=== PATIENT | female | born 1975 | race African-American/Black ===

== ENCOUNTER → 2017-03-09 | Outpatient (CLI) | payer BC ==
--- NOTE | 2017-03-09 15:36 | RAD ---
DATE: 03/09/2017 EXAM: DIGITAL SCREEN BILAT W/CAD HISTORY: Screening COMPARISON: 05/22/2014 This study was interpreted with the benefit of Computerized Aided Detection (CAD). FINDINGS: Breast Density: SCATTERED The breast parenchyma shows scattered fibroglandular densities. Breast parenchyma level B. There has not been a significant change in the appearance of the breasts compared to the previous exam IMPRESSION: Benign findings BI-RADS CATEGORY: 2 BENIGN FINDING(S) RECOMMENDED FOLLOW-UP: 12M 12 MONTH FOLLOW-UP PQRS compliance statement: Patient information was entered into a reminder system with a target due date 03/09/2018 for the next mammogram. Mammography is a sensitive method for finding small breast cancers, but it does not detect them all and is not a substitute for careful clinical examination. A negative mammogram does not negate a clinically suspicious finding and should not result in delay in biopsying a clinically suspicious abnormality. "Our facility is accredited by the [employer] Mammography [employer]."
== END | disposition home or self-care (01) ==
LOC: MAMMO 14:50
PROVIDERS: ATTEND Internal Medicine
DX: Z12.31 Encounter for screening mammogram for malignant neoplasm of breast (principal); Z00.00 Encounter for general adult medical examination without abnormal findings
CPT/HCPCS: G0202; 77067

== ENCOUNTER → 2017-09-06 | Outpatient (CLI) | payer BC | END | disposition home or self-care (01) | LOC: KCIC CT 15:19 | DX: J32.1 Chronic frontal sinusitis (principal) | CPT/HCPCS: 70486 ==

== ENCOUNTER → 2018-05-11 | Outpatient (CLI) | payer BC ==
--- NOTE | 2018-05-13 10:31 | RAD ---
DATE: 05/11/2018 2:30 PM EXAM: MAMMO KIMBERLYN SCREENING BILATERAL HISTORY: routine screening evaluation. COMPARISON: Prior mammographic imaging dating back to 06/10/2005 Bilateral CC and MLO views of the breasts were performed. Bilateral breast tomosynthesis was performed in CC and MLO projections. This study was interpreted with the benefit of Computerized Aided Detection (CAD ). Breast Density: The breast parenchyma shows scattered fibroglandular densities. Breast parenchyma level B. FINDINGS: There is a focal asymmetry in the superior right breast approximately 8 cm from the nipple best seen on the tomographic images. No suspicious masses, microcalcifications or architectural distortion is present to suggest malignancy in the left breast. The visualized axillae are unremarkable. IMPRESSION: Right breast focal asymmetry, findings for which additional imaging is advised. BI-RADS CATEGORY: 0 INCOMPLETE: NEEDS ADDITIONAL IMAGING EVALUATION AND/OR PRIOR MAMMOGRAMS FOR COMPARISON. RECOMMENDED FOLLOW-UP: ADD ADDITIONAL IMAGING The patient will be contacted to return for additional imaging and a supplemental report will follow. Recommend spot compression views of the right breast in the CC and MLO projections and likely ultrasound. PQRS compliance statement: Patient information was entered into a reminder system with a target due date -immediate recall for further evaluation of the right breast finding. Mammography is a sensitive method for finding small breast cancers, but it does not detect them all and is not a substitute for careful clinical examination. A negative mammogram does not negate a clinically suspicious finding and should not result in delay in biopsying a clinically suspicious abnormality. "Our facility is accredited by the [employer] Mammography [employer]." KATARZYNAD
== END | disposition home or self-care (01) ==
LOC: MAMMO 12:36
PROVIDERS: ATTEND Internal Medicine
DX: Z12.31 Encounter for screening mammogram for malignant neoplasm of breast (principal)
CPT/HCPCS: 77063; 77067

== ENCOUNTER → 2018-05-30 | Outpatient (CLI) | payer BC ==
--- NOTE | 2018-05-30 12:04 | RAD ---
DATE: 05/11/2018 EXAM: DIGITAL DIAGNOSTIC RT, BREAST RIGHT HISTORY: Suspicious screening study COMPARISON: 05/11/2018, 03/09/2017, 05/22/2014 This study was interpreted with the benefit of Computerized Aided Detection (CAD). Breast Density: SCATTERED The breast parenchyma shows scattered fibroglandular densities. Breast parenchyma level B. FINDINGS: The screening study demonstrated patchy fibroglandular opacities in the right breast with a small asymmetry in the superior aspect of the right breast. Today's spot compression cc image demonstrates similar patchy fibroglandular type opacities. A spot compression oblique and a straight mediolateral view of the right breast did not demonstrate a discrete mass. More prominent fibroglandular opacities were present in this region on older studies such as a 05/22/2014 exam. Right breast ultrasound, 05/22/2014: A targeted ultrasound exam of the upper right breast was performed. At the 12:00 location approximately 8 cm from the nipple there is a small elongated nodule. It is best seen in the antiradial plane where it measures approximately 5.5 x 3 mm. It is wider than tall. There is a small elongated internal cystic component with probable smooth mural thickening. There is no significant posterior acoustic enhancement or shadowing. This is likely an old collapsed or complicated cyst. No other sonographic abnormality was identified. IMPRESSION: Probably benign small right breast nodule as described above. Follow-up right mammography and right breast ultrasound in 6 months is suggested. BI-RADS CATEGORY: 3 PROBABLY BENIGN FINDING(S)-SHORT INTERVAL FOLLOW-UP SUGGESTED RECOMMENDED FOLLOW-UP: 6M 6 MONTH FOLLOW-UP PQRS compliance statement: Patient information was entered into a reminder system with a target due date for the next mammogram. Mammography is a sensitive method for finding small breast cancers, but it does not detect them all and is not a substitute for careful clinical examination. A negative mammogram does not negate a clinically suspicious finding and should not result in delay in biopsying a clinically suspicious abnormality. "Our facility is accredited by the [employer] Mammography [employer]."
== END | disposition home or self-care (01) ==
LOC: MAMMO 10:46
PROVIDERS: ATTEND Internal Medicine
DX: N63.11 Unspecified lump in the right breast, upper outer quadrant (principal)
CPT/HCPCS: 76641; 77065

== ENCOUNTER → 2018-11-04 | Outpatient (CLI) | payer BC ==
--- NOTE | 2018-11-04 12:57 | KCIC ---
EXAM: CT right shoulder DATE: 11/04/2018 9:30 AM COMPARISON: No prior INDICATION: Right shoulder pain TECHNIQUE: CT of the right shoulder was performed without IV contrast. PQRS compliance statement - One or more of the following individualized dose reduction techniques were utilized for this study: 1. Automated exposure control 2. Adjustment of the mA and/or kV according to patient size 3. Use of iterative reconstruction technique FINDINGS: No evidence for acute fracture. Humeral head is not high riding. Rotator cuff muscle bulk is grossly normal without fatty atrophy. AC joint is congruent. Glenohumeral joint is preserved. Of note, the glenoid is mildly flattened in the AP dimension although maintains normal concavity in the craniocaudal dimension equivocal for glenoid dysplasia. Normal glenoid bone stock. Minimal opacities right lung likely atelectasis. IMPRESSION: 1. No fracture or dislocation. 2. No significant glenohumeral joint osteoarthritis. 3. Glenoid appears borderline small with mild flattened appearance, equivocal for glenoid dysplasia. 4. No osseous Bankart or Hill-Sachs deformity is seen. Electronically signed by: Colton Reyes MD (11/04/2018 12:54 PM) [id number]
== END | disposition home or self-care (01) ==
LOC: KCIC CT 09:22
PROVIDERS: ATTEND Internal Medicine
DX: M25.511 Pain in right shoulder (principal)
CPT/HCPCS: 73200

== ENCOUNTER → 2018-12-05 | Outpatient (CLI) | payer BC ==
--- NOTE | 2018-12-05 13:02 | RAD ---
DATE: 12/05/2018 EXAM: DIGITAL DIAGNOSTIC RT HISTORY: Right breast follow-up. COMPARISON: Previous mammogram from 2017 and from 03/09/2017. This study was interpreted with the benefit of Computerized Aided Detection (CAD). FINDINGS: Breast Density: SCATTERED The breast parenchyma shows scattered fibroglandular densities. Breast parenchyma level B. Stable right upper breast focal asymmetry seen. No new suspicious calcifications, spiculated mass or area of architectural distortion. IMPRESSION: Please see ultrasound report from the same day. BI-RADS CATEGORY: 3 PROBABLE BENIGN FINDING(S-SHORT INTERVAL FOLLOW-UP SUGGESTED RECOMMENDED FOLLOW-UP: 6M 6 MONTH FOLLOW-UP. Right breast mammogram and ultrasound in 6 months recommended. PQRS compliance statement: Patient information was entered into a reminder system with a target due date for the next mammogram. Mammography is a sensitive method for finding small breast cancers, but it does not detect them all and is not a substitute for careful clinical examination. A negative mammogram does not negate a clinically suspicious finding and should not result in delay in biopsying a clinically suspicious abnormality. "Our facility is accredited by the [employer] Mammography [employer]."
--- NOTE | 2018-12-05 13:11 | RAD ---
Indication: Right breast nodule follow-up. TECHNIQUE: Limited right breast ultrasound COMPARISON: 05/30/2018. FINDINGS: At 12:00 position approximately 8 cm from the nipple there is an oval-shaped hypoechoic lesion measuring 0.8 x 0.6 cm, previously 0.6 x 0.8 cm which is wider than taller. IMPRESSION: Stable right breast lesion as described above. BI-RADS 3: Probably benign. Follow-up right breast mammogram and ultrasound in 6 months recommended.
== END | disposition home or self-care (01) ==
LOC: MAMMO 12:13
PROVIDERS: ATTEND Internal Medicine
DX: Z01.419 Encounter for gynecological examination (general) (routine) without abnormal findings (principal); R92.8 Other abnormal and inconclusive findings on diagnostic imaging of breast; R92.2 Inconclusive mammogram
CPT/HCPCS: 76641; 77065